=== PATIENT | female | born 1990 | race Two or more races ===

== ENCOUNTER 2017-12-08 20:31 | Emergency (ER) | payer MEDICAID ==
[~2017-12-08] VITALS: Ht 157.5 cm; Wt 54.4 kg
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
--- NOTE | 2017-12-08 20:50 | NUR ---
AT BEDSIDE FOR EVAL.
--- NOTE | 2017-12-08 21:00 | NUR ---
URINE SPECIMEN OBTAINED AND SENT TO THE LAB.
--- NOTE | 2017-12-08 21:10 | NUR ---
LAB AT BEDSIDE FOR DRAW.
--- NOTE | 2017-12-08 21:10 | NUR ---
CALLED [facility] [phone] TO [employer] TECHNICIAN NUMBER [id number]
--- NOTE | 2017-12-08 21:18 | NUR ---
SETUP FOR PELVIC EXAM PER MD ORDERS.
--- NOTE | 2017-12-08 21:20 | NUR ---
ASSISTED MD AT BEDSIDE WITH PELVIC EXAM.
[2017-12-08 21:23] LABS: BASOPHILS # (AUTO) 0.1 /CMM (0.0-0.2); BASOPHILS % (AUTO) 0.9 % (0.0-2.0); EOSINOPHILS % (AUTO) 1.4 % (0.0-6.0); HEMATOCRIT 36 % (33-45); HEMOGLOBIN 12.6 g/dL (11.5-14.8); LYMPHOCYTES # (AUTO) 2.4 /CMM (0.8-4.8); LYMPHOCYTES % (AUTO) 29.7 % (20.0-44.0); MEAN CORPUSCULAR HGB CONC 36 g/dl (31.0-36.0); MEAN CORPUSCULAR VOLUME 88 fL (82-100); MONOCYTES # (AUTO) 0.6 /CMM (0.1-1.30); MONOCYTES % (AUTO) 7.1 % (2.0-12.0); NEUTROPHILS # (AUTO) 4.8 /CMM (1.8-8.9); NEUTROPHILS % (AUTO) 60.9 % (43.0-81.0); PLATELET COUNT (AUTO) 252 /CMM (150-450); RDW COEFFICIENT OF VARIATION 12.6 (11.5-15.0); RED BLOOD CELL COUNT(AUTO) 4.04 MIL/uL (4.0-5.2)
--- NOTE | 2017-12-08 21:25 | NUR ---
ULTRASOUND SETUP AT BEDSIDE PER MD ORDERS.
[2017-12-08 21:30] LABS: CREATININE 0.7 mg/dL (0.6-1.3); POTASSIUM 3.6 mmol/L (3.5-5.1)
[2017-12-08 21:36] LABS: BILIRUBIN,TOTAL 0.3 mg/dL (0.2-1.0); TOTAL PROTEIN, SERUM 7.7 g/dL (6.4-8.2)
--- NOTE | 2017-12-08 22:09 | NUR ---
Patient discharged to home in stable condition. Written and verbal after care instructions given. Patient verbalizes understanding of instruction. Patient ambulatory with a steady gait. Patient to wait for [employer] in waiting room.
[2017-12-08 22:10] VITALS: BP 111/75
== END 2017-12-08 22:11 | disposition home or self-care (01) ==
LOC: ER 20:31
DX: N93.9 Abnormal uterine and vaginal bleeding, unspecified (principal); S80.12XA Contusion of left lower leg, initial encounter; S40.022A Contusion of left upper arm, initial encounter; Y04.2XXA Assault by strike against or bumped into by another person, initial encounter; Y93.89 Activity, other specified; Y92.89 Other specified places as the place of occurrence of the external cause; Y99.8 Other external cause status
CPT/HCPCS: 36415; 80053-TC; 84703-TC; 85025-TC; A4606; Z7610

== ENCOUNTER 2017-12-27 21:04 | Emergency (ER) | payer MEDICAID ==
[~2017-12-27] VITALS: Ht 149.9 cm; Wt 68.0 kg
[2017-12-27 21:15] VITALS: BP 97/53
== END 2017-12-27 21:56 | disposition home or self-care (01) ==
LOC: ER 21:06
DX: R04.0 Epistaxis (principal)
CPT/HCPCS: 99281; A4606; Z7610; Z7502

== ENCOUNTER 2021-02-22 23:27 | Emergency (ER) | payer MEDICAID, OTHER ==
[~2021-02-22] VITALS: Ht 157.5 cm; Wt 49.9 kg
[2021-02-22 23:56] VITALS: BP 110/76
[2021-02-23] MEDS ORDERED: ACETAMINOPHEN 325 MG TABLET ONE (00:24)
[2021-02-23] MEDS ORDERED: ACETAMINOPHEN 325 MG TABLET PO ONE (00:30)
== END 2021-02-23 00:24 | disposition home or self-care (01) ==
LOC: ER 23:28
DX: R51.9 Headache, unspecified (principal); R42 Dizziness and giddiness; Z88.6 Allergy status to analgesic agent; Z88.5 Allergy status to narcotic agent